=== PATIENT | female | born 1955 | race African-American/Black ===

== ENCOUNTER 2023-11-09 10:17 | Emergency (ER) | payer BC ==
[2023-11-09 10:38] VITALS: BP 118/82; PULSE 81; RESP 16; TEMP 98.1; BMI 28.7
[2023-11-09] MEDS ORDERED: ACETAMINOPHEN 325 MG TABLET (FP) ONE (12:01)
[2023-11-09] MEDS: ACETAMINOPHEN 325 MG TABLET (FP) PO ONE (12:05)
== END 2023-11-09 13:20 | disposition home or self-care (01) ==
LOC: FER 10:17
DX: M79.651 Pain in right thigh (principal); W10.9XXA Fall (on) (from) unspecified stairs and steps, initial encounter
CPT/HCPCS: 72170-TC-FY; 73552-TC-RT-FY; 99284-25

== ENCOUNTER → 2025-04-03 | Day surgery (SDC) | payer BC | END | disposition home or self-care (01) | LOC: JRADIR 09:13 | PROVIDERS: ATTEND Otolaryngology | PROC: 0GBG3ZX Excision of Left Thyroid Gland Lobe, Percutaneous Approach, Diagnostic (ICD-10-PCS; principal; 2025-04-03) | DX: E04.2 Nontoxic multinodular goiter (principal); D44.0 Neoplasm of uncertain behavior of thyroid gland; R89.6 Abnormal cytological findings in specimens from other organs, systems and tissues | CPT/HCPCS: 76942; 88173; 88305-TC ==